=== PATIENT | female | born 1975 | race Caucasian/White ===

== ENCOUNTER 2019-09-07 09:10 | Inpatient (IN) ==
[2019-09-07] MEDS ORDERED: ACETAMINOPHEN 500 MG TABLET PO STA (09:29)
[2019-09-07] MEDS ORDERED: SODIUM CHLORIDE 0.9% 1,000 ML IV STA (09:53)
[2019-09-07 10:37] LABS: Apearance,Urine Slightly Hazy (Clear); Bacteria,Urine Many /HPF (Few); Bilirubin,Urine Negative (Negative); Blood, Urine Moderate mg/dL (Negative); Glucose,Urine (UA) Negative (Negative); Ketones,Urine Negative (Negative); Mucus,Urine Occasional /LPF (Occasional); Nitrite,Urine Positive (Negative); Protein,Urine 30 MG/DL; RBC,Urine 5 /HPF (0-4); Squamous Epithelial Cell,Urine Occasional /HPF (0-10); Urine Color Amber (Yellow); Urine Specific Gravity 1.013 (1.001-1.035); WBC,Urine 134 /HPF (0-6)
[2019-09-07] MEDS ORDERED: cefTRIAXone 1,000 MG in SODIUM CHLORIDE 0.9% 100 ML IV STA (11:01)
[2019-09-07] MEDS ORDERED: cefTRIAXone 1,000 MG in SYRINGE 1 EACH IV STA (11:10)
[2019-09-07 11:22] LABS: Albumin 1.9 G/DL (3.4-5.0); Bilirubin,Total 1.6 MG/DL (0.2-1.0); Calcium 7.9 MG/DL (8.5-10.1); Ferritin 276.7 ng/ml (8-252); Osmolality,Calculated 267.5 MOS/KG (273-304); Total Protein 5.8 G/DL (6.4-8.3)
[2019-09-07 11:27] LABS: Basophils % 0.4 % (0.0-0.8); Eosinophils % 0.4 % (0.00-10.9); Hematocrit 38.7 VOL% (35.7-47.0); Hemoglobin 12.7 GM/DL (12.0-16.0); Immature Granulocytes % 1.3 %; Immature Granulocytes Absolute 0.15 #; Lymphocytes # 1.4 10*3/uL (1.4-4.0); Lymphocytes % 12.4 % (21.3-54.2); Mean Corpuscular HGB Conc 32.8 GM/DL (32-36); Mean Corpuscular Volume 93.3 FL (87-102); Mean Platelet Volume 11.8 FL (9.6-12.0); Monocytes % 14.8 % (1.7-12.7); Neutrophils % 70.7 % (38.7-73.9); Red Blood Count 4.15 MC/CUMM (3.8-5.5); Red Cell Distribution Width 13.8 % (9.3-17.3); White Blood Count 11.3 T/CUMM (4-12)
[2019-09-07 11:29] LABS: Platelet Count 60 T/CUMM (130-400)
[2019-09-07 11:46] LABS: Atypical Lymphocytes Few; Band Neutrophils 3 % (0-10); Eosinophils 1 % (0-10); Hypochromasia Slight; Lymphocytes 16 % (20-55); Microcytosis Slight; Myelocytes 1 %; Segmented Neutrophils 67 % (50-85); Total Cells Counted 100
[2019-09-07 11:48] LABS: Platelet Estimate Decreased
[2019-09-07 12:04] LABS: PT Patient Result 10.5 SECS (9.8-11.9); Partial Thromboplastin Time 27.7 SECS (23.9-33.8)
[2019-09-07] MEDS ORDERED: DEXTROSE 10% 250 ML BAG IV PRN (12:45)
[2019-09-07] MEDS ORDERED: GLUCAGON 1 MG VIAL IM PRN (12:45)
[2019-09-07] MEDS ORDERED: NICOTINE 21 MG/24 HR PATCH TRANSDERM PRN (12:45)
[2019-09-07] MEDS: ENOXAPARIN 40 MG/0.4 ML SYRINGE SUBCUT SCH (15:07)
[2019-09-07] MEDS: SODIUM CHLORIDE 0.45% 1,000 ML IV SCH (15:07)
[2019-09-07] MEDS: ACETAMINOPHEN 325 MG TABLET PO PRN ×2 (15:48→21:00)
[2019-09-07] MEDS: ONDANSETRON 4 MG/2 ML VIAL IV PRN (21:00)
[2019-09-07] MEDS: ALPRAZolam 0.5 MG TABLET PO PRN (21:01)
[2019-09-07] MEDS: POTASSIUM CITRATE 10 MEQ TABLET PO SCH (21:01)
[2019-09-07] MEDS: DULoxetine 20 MG CAPSULE PO SCH (21:01)
[2019-09-07] MEDS: NORGESTIMATE ETHINYL ESTRADIOL PO SCH (21:23)
[2019-09-08] MEDS ORDERED: KETOROLAC 15 MG/1 ML VIAL IV PRN (01:02)
[2019-09-08] MEDS ORDERED: IBUPROFEN 400 MG TABLET PO PRN (01:03)
[2019-09-08] MEDS: SODIUM CHLORIDE 0.45% 1,000 ML IV SCH ×3 (01:18→18:21)
[2019-09-08 05:41] LABS: Basophils # 0.1 10*3/uL (0.0-0.2); Basophils % 0.5 % (0.0-0.8); Eosinophils # 0.1 10*3/uL (0.0-0.87); Eosinophils % 0.5 % (0.00-10.9); Hematocrit 32.7 VOL% (35.7-47.0); Immature Granulocytes % 1.3 %; Immature Granulocytes Absolute 0.14 #; Lymphocytes # 1.6 10*3/uL (1.4-4.0); Lymphocytes % 14.3 % (21.3-54.2); Mean Corpuscular HGB Conc 32.7 GM/DL (32-36); Mean Corpuscular Volume 92.4 FL (87-102); Mean Platelet Volume 11.8 FL (9.6-12.0); Monocytes % 13.1 % (1.7-12.7); Neutrophils % 70.3 % (38.7-73.9); Red Blood Count 3.54 MC/CUMM (3.8-5.5); Red Cell Distribution Width 13.7 % (9.3-17.3); White Blood Count 11.1 T/CUMM (4-12)
[2019-09-08 05:43] LABS: Hemoglobin 10.7 GM/DL (12.0-16.0); Platelet Count 88 T/CUMM (130-400)
[2019-09-08 06:00] LABS: Hypochromasia 1+; Microcytosis Slight; Platelet Estimate Decreased
[2019-09-08 06:07] LABS: Albumin 1.9 G/DL (3.4-5.0); Calcium 8.1 MG/DL (8.5-10.1); Thyroid Stimulating Hormone 1.52 uIU/ml (0.358-3.74); Total Protein 5.8 G/DL (6.4-8.3)
[2019-09-08] MEDS ORDERED: cefTRIAXone 1,000 MG in SYRINGE 1 EACH IV SCH (09:00)
[2019-09-08] MEDS ORDERED: PANTOPRAZOLE 40 MG TABLET PO SCH (09:00)
[2019-09-08] MEDS ORDERED: ZINC SULFATE 220 MG CAPSULE PO SCH (09:00)
[2019-09-08] MEDS: HYDROXYCHLOROQUINE 200 MG TABLET PO SCH ×2 (09:20→20:17)
[2019-09-08] MEDS: ENOXAPARIN 40 MG/0.4 ML SYRINGE SUBCUT SCH (09:20)
[2019-09-08] MEDS: POTASSIUM CITRATE 10 MEQ TABLET PO SCH ×2 (09:20→20:17)
[2019-09-08] MEDS: traMADol 50 MG TABLET PO PRN ×2 (12:13→20:17)
[2019-09-08] MEDS: BUTALBITAL/ACETAMIN/CAFFEINE 50-325-40 MG TABLET PO PRN ×2 (14:04→21:30)
[2019-09-08] MEDS: ONDANSETRON 4 MG/2 ML VIAL IV PRN (14:04)
[2019-09-08] MEDS: ALPRAZolam 0.5 MG TABLET PO PRN (20:17)
[2019-09-08] MEDS: DULoxetine 20 MG CAPSULE PO SCH (20:17)
[2019-09-08] MEDS: NORGESTIMATE ETHINYL ESTRADIOL PO SCH (20:20)
[2019-09-08] MEDS ORDERED: SUMAtriptan 6 MG/0.5 ML VIAL SUBCUT PRN (22:46)
[2019-09-09] MEDS: SODIUM CHLORIDE 0.45% 1,000 ML IV SCH ×3 (00:15→19:47)
[2019-09-09] MEDS: traMADol 50 MG TABLET PO PRN (02:28)
[2019-09-09] MEDS: BUTALBITAL/ACETAMIN/CAFFEINE 50-325-40 MG TABLET PO PRN (03:50)
[2019-09-09 06:16] LABS: Basophils # 0.1 10*3/uL (0.0-0.2); Basophils % 0.4 % (0.0-0.8); Eosinophils % 0.2 % (0.00-10.9); Hematocrit 35.1 VOL% (35.7-47.0); Hemoglobin 11.3 GM/DL (12.0-16.0); Immature Granulocytes % 0.9 %; Immature Granulocytes Absolute 0.11 #; Lymphocytes # 1.7 10*3/uL (1.4-4.0); Lymphocytes % 13.7 % (21.3-54.2); Mean Corpuscular HGB Conc 32.2 GM/DL (32-36); Mean Corpuscular Volume 95.4 FL (87-102); Monocytes % 10.7 % (1.7-12.7); Neutrophils % 74.1 % (38.7-73.9); Red Blood Count 3.68 MC/CUMM (3.8-5.5); Red Cell Distribution Width 13.9 % (9.3-17.3); White Blood Count 12.2 T/CUMM (4-12)
[2019-09-09 06:33] LABS: Platelet Count 180 T/CUMM (130-400)
[2019-09-09 06:35] LABS: Hypochromasia 1+; Platelet Estimate Adequate
[2019-09-09 06:36] LABS: Microcytosis Slight
[2019-09-09 06:41] LABS: Albumin 2.2 G/DL (3.4-5.0); Bilirubin,Total 1.5 MG/DL (0.2-1.0); Calcium 8.8 MG/DL (8.5-10.1); Total Protein 6.7 G/DL (6.4-8.3)
[2019-09-09] MEDS ORDERED: cefTRIAXone 1,000 MG in SODIUM CHLORIDE 0.9% 100 ML IV SCH (08:00)
[2019-09-09] MEDS ORDERED: HYDROXYCHLOROQUINE 200 MG TABLET PO SCH (09:00)
[2019-09-09] MEDS ORDERED: VANCOMYCIN INJ 2,000 MG in SODIUM CHLORIDE 0.9% 500 ML IV ONE (09:00)
[2019-09-09] MEDS: cefTRIAXone 2,000 MG in SYRINGE 1 EACH IV SCH ×2 (10:05→21:39)
[2019-09-09] MEDS: POTASSIUM CITRATE 10 MEQ TABLET PO SCH ×2 (10:10→21:39)
[2019-09-09] MEDS: ENOXAPARIN 40 MG/0.4 ML SYRINGE SUBCUT SCH (10:10)
[2019-09-09] MEDS: ACYCLOVIR INJ 500 MG in SODIUM CHLORIDE 0.9% 100 ML IV SCH ×2 (12:15→19:47)
[2019-09-09] MEDS: guaiFENesin/DM ER 600-30 MG TABLET PO PRN ×2 (13:40→21:40)
[2019-09-09] MEDS: ACETAMINOPHEN 325 MG TABLET PO PRN (13:40)
[2019-09-09] MEDS ORDERED: traMADol 50 MG TABLET PO PRN (17:21)
[2019-09-09] MEDS: DULoxetine 20 MG CAPSULE PO SCH (21:39)
[2019-09-09] MEDS: NORGESTIMATE ETHINYL ESTRADIOL PO SCH (21:40)
[2019-09-09] MEDS: VANCOMYCIN INJ 1,250 MG in SODIUM CHLORIDE 0.9% 250 ML IV SCH (21:40)
[2019-09-09] MEDS: ALPRAZolam 0.5 MG TABLET PO PRN (21:40)
[2019-09-10] MEDS: ACYCLOVIR INJ 500 MG in SODIUM CHLORIDE 0.9% 100 ML IV SCH ×3 (04:20→20:35)
[2019-09-10 05:52] LABS: Basophils % 0.4 % (0.0-0.8); Eosinophils % 0.3 % (0.00-10.9); Hematocrit 31.6 VOL% (35.7-47.0); Hemoglobin 10.4 GM/DL (12.0-16.0); Immature Granulocytes % 1.1 %; Immature Granulocytes Absolute 0.12 #; Lymphocytes # 1.3 10*3/uL (1.4-4.0); Lymphocytes % 11.6 % (21.3-54.2); Mean Corpuscular HGB Conc 32.9 GM/DL (32-36); Mean Corpuscular Volume 92.9 FL (87-102); Mean Platelet Volume 11.1 FL (9.6-12.0); Monocytes % 7.7 % (1.7-12.7); Neutrophils % 78.9 % (38.7-73.9); Platelet Count 210 T/CUMM (130-400); Red Cell Distribution Width 13.6 % (9.3-17.3); White Blood Count 11.2 T/CUMM (4-12)
[2019-09-10 06:21] LABS: Albumin 1.9 G/DL (3.4-5.0); Bilirubin,Total 0.6 MG/DL (0.2-1.0); Calcium 8.5 MG/DL (8.5-10.1); Osmolality,Calculated 268.1 MOS/KG (273-304); Total Protein 5.9 G/DL (6.4-8.3)
[2019-09-10] MEDS: SODIUM CHLORIDE 0.45% 1,000 ML IV SCH ×3 (07:19→17:10)
[2019-09-10] MEDS: cefTRIAXone 2,000 MG in SYRINGE 1 EACH IV SCH ×2 (08:02→20:35)
[2019-09-10] MEDS: VANCOMYCIN INJ 1,250 MG in SODIUM CHLORIDE 0.9% 250 ML IV SCH ×2 (08:02→21:35)
[2019-09-10] MEDS: POTASSIUM CITRATE 10 MEQ TABLET PO SCH ×2 (08:02→20:36)
[2019-09-10 12:08] LABS: Glucose,CSF 49 MG/DL (40-70)
[2019-09-10 12:34] LABS: Appearance,CSF Clear; Lymphocytes,CSF 53 %; Monocytes,CSF 33 %; Neutrophils,CSF 13 %; Red Blood Cell,CSF 10 C/CUMM; White Blood Cell,CSF 10 C/CUMM
[2019-09-10] MEDS: ALPRAZolam 0.5 MG TABLET PO PRN (20:35)
[2019-09-10] MEDS: DULoxetine 20 MG CAPSULE PO SCH (20:35)
[2019-09-10] MEDS: guaiFENesin/DM ER 600-30 MG TABLET PO PRN (20:36)
[2019-09-10] MEDS: NORGESTIMATE ETHINYL ESTRADIOL PO SCH (20:36)
[2019-09-10] MEDS: ACETAMINOPHEN 325 MG TABLET PO PRN (21:31)
[2019-09-11] MEDS: ACYCLOVIR INJ 500 MG in SODIUM CHLORIDE 0.9% 100 ML IV SCH ×3 (05:24→20:42)
[2019-09-11 05:45] LABS: Basophils % 0.4 % (0.0-0.8); Eosinophils # 0.1 10*3/uL (0.0-0.87); Eosinophils % 0.5 % (0.00-10.9); Hematocrit 33.5 VOL% (35.7-47.0); Hemoglobin 10.7 GM/DL (12.0-16.0); Immature Granulocytes % 0.8 %; Immature Granulocytes Absolute 0.08 #; Lymphocytes # 1.3 10*3/uL (1.4-4.0); Lymphocytes % 12.9 % (21.3-54.2); Mean Corpuscular HGB Conc 31.9 GM/DL (32-36); Mean Corpuscular Volume 95.7 FL (87-102); Mean Platelet Volume 10.8 FL (9.6-12.0); Neutrophils % 78.4 % (38.7-73.9); Platelet Count 262 T/CUMM (130-400); Red Cell Distribution Width 13.4 % (9.3-17.3)
[2019-09-11 06:05] LABS: Calcium 8.5 MG/DL (8.5-10.1); Osmolality,Calculated 272.7 MOS/KG (273-304)
[2019-09-11] MEDS ORDERED: IBUPROFEN 600 MG TABLET PO PRN (07:28)
[2019-09-11] MEDS: POTASSIUM CITRATE 10 MEQ TABLET PO SCH ×2 (08:22→20:41)
[2019-09-11] MEDS: cefTRIAXone 2,000 MG in SYRINGE 1 EACH IV SCH ×2 (08:22→20:41)
[2019-09-11] MEDS: ENOXAPARIN 40 MG/0.4 ML SYRINGE SUBCUT SCH (08:23)
[2019-09-11] MEDS: VANCOMYCIN INJ 1,250 MG in SODIUM CHLORIDE 0.9% 250 ML IV SCH (08:23)
[2019-09-11] MEDS: SODIUM CHLORIDE 0.45% 1,000 ML IV SCH (08:24)
[2019-09-11] MEDS ORDERED: MAGNESIUM SULF RIDER 4 GM in PREMIX 1 EACH IV ONE (12:00)
[2019-09-11] MEDS: DULoxetine 20 MG CAPSULE PO SCH (20:42)
[2019-09-11] MEDS: ALPRAZolam 0.5 MG TABLET PO PRN (20:42)
[2019-09-11] MEDS: NORGESTIMATE ETHINYL ESTRADIOL PO SCH (20:43)
[2019-09-12] MEDS: SODIUM CHLORIDE 0.45% 1,000 ML IV SCH (01:57)
[2019-09-12] MEDS: ACYCLOVIR INJ 500 MG in SODIUM CHLORIDE 0.9% 100 ML IV SCH ×2 (04:33→10:59)
[2019-09-12] MEDS: cefTRIAXone 2,000 MG in SYRINGE 1 EACH IV SCH (09:14)
[2019-09-12] MEDS: ENOXAPARIN 40 MG/0.4 ML SYRINGE SUBCUT SCH (09:14)
[2019-09-12] MEDS: POTASSIUM CITRATE 10 MEQ TABLET PO SCH (09:14)
[2019-09-12 11:37] VITALS: BP 101/60
== END 2019-09-12 12:32 | disposition home or self-care (01) | DRG 690 ==
LOC: N.ED 09:10 → N.EDINP 12:41 → N.2W 13:56
PROVIDERS: ADMIT Family Medicine; ATTEND Family Medicine